=== PATIENT | male | born 1970 | race Caucasian/White ===

== ENCOUNTER 2017-04-28 15:29 | Emergency (ER) | payer MEDICAID ==
[~2017-04-28] VITALS: Ht 182.9 cm; Wt 73.0 kg
[2017-04-28] MEDS ORDERED: PLEASE ENTER ALLERGIES MC SCH ×2 (16:30)
[2017-04-28] MEDS ORDERED: PLEASE ENTER HEIGHT AND WEIGHT MC SCH (16:30)
[2017-04-28 17:17] VITALS: BP 166/87
== END 2017-04-28 17:26 | disposition home or self-care (01) ==
LOC: ED 17:05
DX: J45.21 Mild intermittent asthma with (acute) exacerbation (principal)
CPT/HCPCS: 99283; J7512

== ENCOUNTER 2021-02-10 01:17 | Emergency (ER) | payer MEDICAID ==
[~2021-02-10] VITALS: Ht 182.9 cm; Wt 75.7 kg
[2021-02-10] MEDS ORDERED: KETOROLAC 30 MG/1 ML IM ONE (02:00)
[2021-02-10] MEDS ORDERED: ACETAMINOPHEN 500 MG TABLET PO ONE (02:00)
[2021-02-10] MEDS ORDERED: ACETAMINOPHEN 500 MG TABLET ONE (02:05)
[2021-02-10] MEDS ORDERED: KETOROLAC 30 MG/1 ML ONE (02:05)
--- NOTE | 2021-02-10 02:13 | NUR ---
PATIENT RESTING IN BED IN NAD. CALL AN IN REACH. PATIENT REPORTS L SHOULDER AND SCAPULA PAINFUL FOR 3 WEEKS. STATES HE WENT TO [facility] FIRST AND THEN LEFT "BECAUSE THEY WERE BUSY". IM TORADOL GIVEN WELL PO TYLENOL. PATIENT EDUCATED ON THESE MEDICATION PRIOR TO ADMIN. WILL CONTINUE TO MONITOR
--- NOTE | 2021-02-10 02:51 | NUR ---
PATIENT RESTING IN BED PRONE AND ALMOST OFF BED. RN ASKED IF PATIENT COULD MOVE BACK IN THE MIDDLE OF THE BED. PATIENT ASKS "ARE YOU GOING TO GIVE ME A PAIN MED?" RN NOTIFIED PATIENT THAT HE WILL NOT BE GETTING A NARCOTIC WHILE IN THE ER TODAY. HE STATES "NOT EVEN ONE? JUST ONE." I REPEATED LAST STATEMENT TO PATIENT. PATIENT THEN REPORTS "WELL I FORGOT I NEED THE DOCTOR TO ALSO LOOK AT MY LEG AND I NEED A NEW INHALER AND MY SKIN HAS BEEN BOTHERING ME AND IM STILL IN A LOT OF PAIN. I THINK I NEED A SHOT OR SOMETHING. CAN I GET A ALEX VIRUS SHOT?" RN REASSURED PATIENT THAT THE MEDICATIONS ADMINISTERED TODAY WHILE IN ER WERE ANTIINFLAMMATROY MEDICATIONS AND MEANT FOR MODERATE PAIN MANAGEMENT. "SO I SHOULD JUST TAKE A BUNCH OF ASPIRINS WHEN I LEAVE?" RN EDUCATED PATIENT ON RISKS OF TAKING TOO MUCH ASPIRIN MORE THAN DIRECTED ON LABEL AND PATIENT VERBALIZED UNDERSTANDING. ALL PERSONAL BELONGINGS WITH PATIENT ON DEPARTURE. STEADY GAIT TO LOBBY. VS REMAIN STABLE. NO IV PLACED DURING THIS ER VISIT Addendum: 02/10/21 at 0301 by MEGAN PRESCRIPTION HANDED DIRECTLY TO PATIENT
[2021-02-10 03:00] VITALS: BP 162/94
== END 2021-02-10 03:02 | disposition home or self-care (01) ==
LOC: ED 02:59
DX: G89.29 Other chronic pain (principal); M25.512 Pain in left shoulder; J45.909 Unspecified asthma, uncomplicated; F17.200 Nicotine dependence, unspecified, uncomplicated
CPT/HCPCS: 73030; 96372; 99283; J1885

== ENCOUNTER 2021-02-17 19:06 | Emergency (ER) | payer MEDICAID ==
[~2021-02-17] VITALS: Ht 182.9 cm; Wt 76.5 kg
[2021-02-17 19:08] VITALS: BP 155/90
--- NOTE | 2021-02-17 19:42 | NUR ---
Pt states having left arm pain x 1 week. Pt states he was seen here a few days ago, was sent home with steroids, and has not improved. Pt denies having injury to arm, and unsure why it hurts. Pt states + numbness and tingling.,
--- NOTE | 2021-02-17 20:10 | NUR ---
DR. GOMES AT BEDSIDE FOR EVAL AT THIS TIME
[2021-02-17] MEDS ORDERED: KETOROLAC 30 MG/1 ML IM ONE (21:00)
[2021-02-17] MEDS ORDERED: KETOROLAC 60 MG/2 ML ONE (21:16)
--- NOTE | 2021-02-17 21:37 | NUR ---
Pt went to coffee cart and got himself beverages. Pt ambulated around hospital with no difficulty. Pt able to eat and drink with no signs of pain or distress. Pt medicated per order. Pt states 10/10 pain .
--- NOTE | 2021-02-17 22:03 | NUR ---
Patient/Caregiver given discharge instructions and they have confirmed that they understand the instructions. Patient ambulatory with steady gait.
--- NOTE | 2021-02-17 22:08 | NUR ---
PT RESTING ON GURNEY, APPEARS MORE COMFORTABLE RESP UNLABORED. HOSPITAL ADMITTING MD AT BEDSIDE AT THIS TIME.
== END 2021-02-17 22:06 | disposition home or self-care (01) ==
LOC: ED 19:43
DX: G89.29 Other chronic pain (principal); M25.512 Pain in left shoulder; R20.0 Anesthesia of skin; M79.89 Other specified soft tissue disorders; J45.909 Unspecified asthma, uncomplicated
CPT/HCPCS: 96372; 99283; J1885